=== PATIENT | female | born 1975 | race Caucasian/White ===

== ENCOUNTER 2025-04-04 15:43 | Emergency (ER) | payer OTHER, BC ==
[~2025-04-04] VITALS: Ht 188 cm; Wt 122.2 kg
[2025-04-04] MEDS ORDERED: LINZ145C PO (15:54)
[2025-04-04] MEDS ORDERED: EFFE150C3 PO (15:54)
[2025-04-04] MEDS ORDERED: LATU120T PO (15:54)
[2025-04-04] MEDS ORDERED: LEVO25TA5 PO (15:54)
[2025-04-04] MEDS: TETANUS/DIPHTH/ACEL. PERTUSSIS 0.5 ML SYR IM ONE (16:32)
[2025-04-04 19:00] VITALS: BP 139/97; TEMP 98.5; O2SAT 97
== END 2025-04-04 19:05 | disposition home or self-care (01) ==
LOC: M ED 15:43
DX: S13.4XXA Sprain of ligaments of cervical spine, initial encounter (principal); V49.50XA Passenger injured in collision with unspecified motor vehicles in traffic accident, initial encounter; W22.12XA Striking against or struck by front passenger side automobile airbag, initial encounter; Y92.410 Unspecified street and highway as the place of occurrence of the external cause; Y93.89 Activity, other specified; Y99.9 Unspecified external cause status; Z79.899 Other long term (current) drug therapy; Z23 Encounter for immunization